=== PATIENT | female | born 1960 | race Caucasian/White ===

== ENCOUNTER 2020-08-22 07:49 | Day surgery (SDC) | payer MEDICARE, MEDICAID ==
[2020-08-22] MEDS ORDERED: Lidocaine 2% 5 ML SDV IV ONE (07:50)
[2020-08-22] MEDS ORDERED: Midazolam 1 MG/ML 2 ML SDV IV ONE (07:50)
[2020-08-22] MEDS ORDERED: Propofol 200 MG/20 ML SDV IV ONE (07:50)
[2020-08-22] MEDS ORDERED: Lactated Ringers 1,000 ML IV SCH (08:00)
[2020-08-22] MEDS ORDERED: Sodium Chloride 0.9% 10 ML Syringe FLUSH PRN (08:00)
--- NOTE | 2020-08-22 10:23 | PCM.OPNOTE ---
- General Post-Op/Procedure Note Date of Surgery/Procedure: 08/22/20 Operative Procedure(s): c scope with bx Findings: ascending colon polyps x3 transverse colon polyp sigmoid diverticulosis Pre Op Diagnosis: hx of diarrhea Post-Op Diagnosis: ascending colon polyps x3. transverse colon polyp. sigmoid diverticulosis Anesthesia Technique: MAC Primary Surgeon: Gustavo Son Anesthesia Provider: Rae Schultz Pathology: ascending colon polyps x3 transverse colon polyp Complications: None Condition: Good Free Text/Narrative:: see dictation
[2020-08-22 11:04] VITALS: BP 155/95; PULSE 67
--- NOTE | 2020-08-22 15:06 | OR ---
DATE OF OPERATION: 08/22/2020 SURGEON: Gustavo Son MD PROCEDURE PERFORMED: Colonoscopy with cold forceps biopsy. PREOPERATIVE DIAGNOSIS: Personal history of diarrhea. POSTOPERATIVE DIAGNOSIS: Ascending colon polyps x3, transverse colon polyp x1, and sigmoid diverticulosis. INDICATIONS FOR PROCEDURE: This is a 59-year-old female who was at the local shelter. She has been having some issues with frequent loose stools up to 8 to 10 times a day. She was offered and accepted colonoscopy as part of the workup. DESCRIPTION OF PROCEDURE: After an excellent IV sedation was administered, digital rectal exam was performed. No marked abnormality was noted. Flexible colonoscope was inserted and advanced to the cecum. The prep was adequate. There were some areas of liquid stool that we were able to irrigate. We did get a fairly good view of the intestinal mucosa. Due to her diagnosis of diarrhea, we were unable to intubate the terminal ileum. The following findings were noted: Ascending colon; the proximal ascending colon, 3 hyperplastic-appearing polyps were noted, biopsied and sent in one container. Transverse colon, small polypoid lesion, again appearing to be hyperplasia, biopsied and submitted using cold biopsy forceps. Random biopsies were taken. Descending colon, unremarkable. Random biopsies were taken. Sigmoid, occasional diverticula, random biopsies were taken. Rectum and anus, unremarkable. Random biopsies were taken of the rectum. The patient tolerated the procedure well, was taken to recovery. Results to be sent via letter. /[id number] /[id number]
== END 2020-08-22 11:10 | disposition home or self-care (01) ==
LOC: FB.SDS 07:49
PROVIDERS: ATTEND Surgery
DX: D12.2 Benign neoplasm of ascending colon (principal); D12.3 Benign neoplasm of transverse colon; K63.89 Other specified diseases of intestine; K57.30 Diverticulosis of large intestine without perforation or abscess without bleeding; E66.9 Obesity, unspecified; K21.9 Gastro-esophageal reflux disease without esophagitis; E03.9 Hypothyroidism, unspecified; G47.33 Obstructive sleep apnea (adult) (pediatric); Z99.89 Dependence on other enabling machines and devices; Z79.899 Other long term (current) drug therapy; Z90.49 Acquired absence of other specified parts of digestive tract; Z68.41 Body mass index [BMI] 40.0-44.9, adult
CPT/HCPCS: 45380; 88305; J2001; J2250; J2704; J7120

== ENCOUNTER 2022-03-04 07:14 | Day surgery (SDC) | payer MEDICARE, MEDICAID ==
[2022-03-04] MEDS ORDERED: Propofol 200 MG/20 ML SDV IV ONE (07:15)
[2022-03-04] MEDS ORDERED: Midazolam 1 MG/ML 2 ML SDV IV ONE (07:15)
[2022-03-04] MEDS ORDERED: Lactated Ringers 1,000 ML IV SCH (07:15)
[2022-03-04] MEDS ORDERED: Sodium Chloride 0.9% 10 ML Syringe FLUSH PRN (07:15)
[2022-03-04 13:52] VITALS: PULSE 63
[2022-03-04 13:53] VITALS: BP 150/97
== END 2022-03-04 10:45 | disposition home or self-care (01) ==
LOC: FB.SDS 07:14
PROVIDERS: ATTEND Surgery
DX: Z12.11 Encounter for screening for malignant neoplasm of colon (principal); C18.2 Malignant neoplasm of ascending colon; K57.30 Diverticulosis of large intestine without perforation or abscess without bleeding; K63.89 Other specified diseases of intestine; Z79.899 Other long term (current) drug therapy; F32.A Depression, unspecified; K21.9 Gastro-esophageal reflux disease without esophagitis; E66.9 Obesity, unspecified; G47.33 Obstructive sleep apnea (adult) (pediatric); Z90.49 Acquired absence of other specified parts of digestive tract; Z98.890 Other specified postprocedural states; Z68.41 Body mass index [BMI] 40.0-44.9, adult
CPT/HCPCS: 00811-QZ; 88305; J2250; J2704; J7120

== ENCOUNTER 2022-04-23 13:19 | Emergency (ER) | payer MEDICARE, MEDICAID ==
[2022-04-23] MEDS ORDERED: Morphine 2 MG/ML SYRINGE IVPUSH ONE (13:58)
[2022-04-23 13:59] VITALS: BP 130/71; PULSE 108
[2022-04-23] MEDS ORDERED: Sodium Chloride 0.9% 1,000 ML IV SCH (14:00)
[2022-04-23 14:28] LABS: ESTIMATED GFR 72 mL/min (>60)
[2022-04-23] MEDS ORDERED: Iopamidol 755 MG/ML 150 ML Bottle IV ONE (14:52)
[2022-04-23] MEDS ORDERED: Sulfamethoxazole/Trimethoprim 800-160 MG Tab PO STA (16:50)
[2022-04-23] MEDS ORDERED: Levofloxacin 750 MG Tab PO STA (16:50)
== END 2022-04-23 17:10 | disposition home or self-care (01) ==
LOC: FB.ED 13:19
DX: K61.1 Rectal abscess (principal); N39.0 Urinary tract infection, site not specified; N12 Tubulo-interstitial nephritis, not specified as acute or chronic; K21.9 Gastro-esophageal reflux disease without esophagitis; E03.9 Hypothyroidism, unspecified; E66.9 Obesity, unspecified; Z79.899 Other long term (current) drug therapy; Z20.822 Contact with and (suspected) exposure to COVID-19; Z68.41 Body mass index [BMI] 40.0-44.9, adult
CPT/HCPCS: 36415; 71046; 74177; 80053; 81001; 82150; 83605; 83690; 85025; 87040; 87077; 87086; 87088; 87186; 99283; 99284; A9270; J7030; Q9967; U0002

== ENCOUNTER 2023-06-14 07:28 | Day surgery (SDC) | payer MEDICARE, MEDICAID ==
[2023-06-14] MEDS ORDERED: Propofol 200 MG/20 ML SDV IV ONE (07:29)
[2023-06-14] MEDS ORDERED: Midazolam 1 MG/ML 2 ML SDV IV ONE (07:29)
[2023-06-14] MEDS ORDERED: Phenylephrine 0.5% Nasal Spray 15 ML Bot NAS ONE (07:29)
[2023-06-14] MEDS ORDERED: Lidocaine 2% 5 ML SDV IV ONE (07:29)
[2023-06-14] MEDS ORDERED: Lactated Ringers 1,000 ML IV SCH (07:30)
[2023-06-14] MEDS ORDERED: Sodium Chloride 0.9% 10 ML Syringe FLUSH PRN (07:30)
[2023-06-14] MEDS ORDERED: Simethicone Drops 40 MG/0.6 ML 30 ML Bottle PO ONE (08:57)
[2023-06-14 11:47] VITALS: BP 136/88; PULSE 74
== END 2023-06-14 10:13 | disposition home or self-care (01) ==
LOC: FB.SDS 07:28
PROVIDERS: ATTEND Surgery
DX: C7A.8 Other malignant neuroendocrine tumors (principal); F32.A Depression, unspecified; K21.9 Gastro-esophageal reflux disease without esophagitis; G47.00 Insomnia, unspecified; G47.33 Obstructive sleep apnea (adult) (pediatric); F03.90 Unspecified dementia, unspecified severity, without behavioral disturbance, psychotic disturbance, mood disturbance, and anxiety; E66.9 Obesity, unspecified; Z90.710 Acquired absence of both cervix and uterus; Z86.010 Personal history of colon polyps; Z85.09 Personal history of malignant neoplasm of other digestive organs; Z98.0 Intestinal bypass and anastomosis status; Z90.49 Acquired absence of other specified parts of digestive tract; Z79.890 Hormone replacement therapy; Z79.899 Other long term (current) drug therapy; Z80.0 Family history of malignant neoplasm of digestive organs; Z68.41 Body mass index [BMI] 40.0-44.9, adult
CPT/HCPCS: 00811; A9270-GY; J2250; J2704; J7120

== ENCOUNTER 2024-09-20 07:53 | Day surgery (SDC) | payer MEDICARE, MEDICAID ==
[~2024-09-20 07:53] MED LIST: Sodium Chloride 0.9% 10 ML Syringe FLUSH PRN
[2024-09-20] MEDS ORDERED: Propofol 200 MG/20 ML SDV IV ONE (07:54)
[2024-09-20] MEDS ORDERED: Lidocaine 2% 100 MG/5 ML Syringe IVPUSH ONE (07:54)
[2024-09-20 08:27] VITALS: BP 101/65; PULSE 73
[2024-09-20] MEDS: Lactated Ringers 1,000 ML IV SCH (09:20)
[2024-09-20] MEDS: Simethicone Drops 40 MG/0.6 ML 30 ML Bottle ONE (09:36)
== END 2024-09-20 10:45 | disposition home or self-care (01) ==
LOC: FB.SDS 07:53
PROVIDERS: ATTEND Surgery
DX: Z08 Encounter for follow-up examination after completed treatment for malignant neoplasm (principal); K21.9 Gastro-esophageal reflux disease without esophagitis; E66.9 Obesity, unspecified; E03.9 Hypothyroidism, unspecified; Z85.038 Personal history of other malignant neoplasm of large intestine; Z98.890 Other specified postprocedural states; Z90.49 Acquired absence of other specified parts of digestive tract; Z79.890 Hormone replacement therapy; Z79.899 Other long term (current) drug therapy; Z68.41 Body mass index [BMI] 40.0-44.9, adult
CPT/HCPCS: 00811; A9270; G0105; J2704; J7120